=== PATIENT | male | born 2000 | race African-American/Black ===

== ENCOUNTER 2020-10-01 20:10 | Emergency (ER) | payer MEDICAID ==
[~2020-10-01] VITALS: Ht 180.3 cm; Wt 86.4 kg
[2020-10-02] MEDS ORDERED: LIDOCAINE 1% 10 ML VIAL ID ONE
[2020-10-02 01:13] VITALS: BP 145/88
[2020-10-02] MEDS ORDERED: KETOROLAC TROMETHAMINE 30 MG/ML VIAL IM ONE (01:15)
== END 2020-10-02 01:50 | disposition home or self-care (01) ==
LOC: EMS 20:10
DX: L02.811 Cutaneous abscess of head [any part, except face] (principal); R51.9 Headache, unspecified
CPT/HCPCS: 10060; 96372; 99283; J1885; J3490